=== PATIENT | male | born 1990 | race Caucasian/White ===

== ENCOUNTER 2017-08-26 22:11 | Emergency (ER) | payer OTHER ==
[~2017-08-26] VITALS: Ht 177.8 cm; Wt 63.5 kg
[~2017-08-26 22:11] MED LIST: IBUP-1481 PO; LEVE1000 PO; PHEN100C4 PO; VENL75CA56 PO
--- NOTE | 2017-08-26 22:20 | NUR ---
PT BIBA#60, PT STATES HE WANTS TO KILL HIMSELF BY JUMPING OFF A BUILDING, PT DENIES HI AND STATES HE IS DEPRESSED, NAD NOTED, MD SHAWNA AT BS.
[2017-08-26 22:35] LABS: BASOPHILS % (AUTO) 0.3 % (0.0-2.0); EOSINOPHILS % (AUTO) 0.2 % (0.0-6.0); HEMATOCRIT 43 % (39-51); HEMOGLOBIN 14.4 g/dL (13.5-17.5); LYMPHOCYTES % (AUTO) 24.4 % (20.0-44.0); MEAN CORPUSCULAR HEMOGLOBIN 32 PG (26.0-33.0); MEAN CORPUSCULAR HGB CONC 34 g/dl (31.0-36.0); MEAN CORPUSCULAR VOLUME 94 fL (80-96); MONOCYTES # (AUTO) 0.6 /CMM (0.1-1.30); MONOCYTES % (AUTO) 6.9 % (2.0-12.0); NEUTROPHILS # (AUTO) 5.5 /CMM (1.8-8.9); NEUTROPHILS % (AUTO) 68.2 % (43.0-81.0); PLATELET COUNT (AUTO) 290 /CMM (150-450); RDW COEFFICIENT OF VARIATION 14.1 (11.5-15.0); RED BLOOD CELL COUNT(AUTO) 4.54 MIL/uL (4.5-6.0); WHITE BLOOD COUNT (AUTO) 8.1 K/uL (4.3-11.0)
[2017-08-26 22:46] LABS: CALCIUM, SERUM 8.2 mg/dL (8.5-10.1); CREATININE 0.8 mg/dL (0.6-1.3); POTASSIUM 3.5 mmol/L (3.5-5.1)
[2017-08-26 22:53] LABS: BILIRUBIN,DIRECT 0.1 mg/dL (0.0-0.2); BILIRUBIN,TOTAL 0.5 mg/dL (0.2-1.0); TOTAL PROTEIN, SERUM 7.2 g/dL (6.4-8.2)
[2017-08-26 23:03] LABS: SALICYLATE 0.8 mg/dL (2.8-20.0)
[2017-08-27] MEDS ORDERED: OLANZAPINE 5 MG TABLET ONE (00:35)
[2017-08-27] MEDS ORDERED: OLANZAPINE 5 MG TABLET PO ONE (01:00)
[2017-08-27 04:40] LABS: APPEARANCE,URINE CLEAR (CLEAR); BILIRUBIN,URINE NEGATIVE (NEGATIVE); BLOOD, URINE NEGATIVE Ery/uL (NEGATIVE); COLOR,URINE YELLOW (YELLOW); KETONES,URINE NEGATIVE (NEGATIVE); LEUKOCYTE ESTERASE ,URINE NEGATIVE (NEGATIVE); NITRITE, URINE NEGATIVE (NEGATIVE); PROTEIN,URINE TRACE mg/dl (NEGATIVE); UGLUCOSE NEGATIVE (NEGATIVE); UROBILINOGEN,URINE 0.2 EU/dL (0.2)
[2017-08-27 04:49] LABS: BACTERIA,URINE None seen /HPF (None Seen); RBC,URINE NONE SEEN /HPF (0-2); SQUAMOUS EPITHELIAL CELL,UR Rare /HPF (None Seen); WBC,URINE 0-2 /HPF (0-3)
[2017-08-27 04:50] LABS: MUCUS,URINE Few /LPF (None Seen)
--- NOTE | 2017-08-27 06:26 | NUR ---
PT TRANSFERRED TO ER BED 6 PER MD REQUEST. PT AWARE.
--- NOTE | 2017-08-27 07:31 | NUR ---
REPORT GIVEN TO LUIS COSBY FOR DEJA.
--- NOTE | 2017-08-27 09:04 | NUR ---
Patient is resting comfortably in bed with eyes closed. Easily aroused. VSS
--- NOTE | 2017-08-27 11:00 | NUR ---
Patient is resting comfortably in bed with eyes closed. Easily aroused. VSS
--- NOTE | 2017-08-27 13:20 | NUR ---
Pt ambulatory with a steady gait.
--- NOTE | 2017-08-27 14:50 | NUR ---
Patient discharged to home in stable condition. Written and verbal after care instructions given. Patient verbalizes understanding of instruction.
[2017-08-27 15:31] VITALS: BP 105/71
== END 2017-08-27 15:35 | disposition home or self-care (01) ==
LOC: ER 22:13
DX: R45.851 Suicidal ideations (principal); F32.9 Major depressive disorder, single episode, unspecified; F10.129 Alcohol abuse with intoxication, unspecified
CPT/HCPCS: 36415; 80048; 80076; 80305; 80329; 81001; 85025; 99284; A4606; G0480 ×2; Z7610; 81000-TC

== ENCOUNTER 2017-10-23 16:02 | Emergency (ER) | payer OTHER ==
[~2017-10-23] VITALS: Ht 182.9 cm; Wt 89.4 kg
[2017-10-23 16:19] VITALS: BP 132/61
== END 2017-10-23 17:32 | disposition home or self-care (01) ==
LOC: ER 16:05
DX: L03.311 Cellulitis of abdominal wall (principal); L40.9 Psoriasis, unspecified; F32.9 Major depressive disorder, single episode, unspecified
CPT/HCPCS: 99283; A4606; Z7610

== ENCOUNTER 2018-03-23 08:49 | Emergency (ER) | payer OTHER ==
[~2018-03-23] VITALS: Ht 175.3 cm; Wt 81.6 kg
[~2018-03-23 08:49] MED LIST changes: -IBUP-1481 PO; +IBUP-1953 PO
--- NOTE | 2018-03-23 08:55 | NUR ---
BIBRA 102 FOR ETOH INTOXICATION. PATIENT ALTERED, BREATHING EVEN AND UNLABORED. NO SOB, NAD, VITALS STABLE. SAFETY AND COMFORT MEASURES IN PLACE. AWAITING MD ORDERS.
--- NOTE | 2018-03-23 14:54 | NUR ---
CALLED FOR FOOD TRAY
--- NOTE | 2018-03-23 15:16 | NUR ---
PT AMBULATORY STEADY GAIT
--- NOTE | 2018-03-23 15:18 | NUR ---
Patient discharged to home in stable condition. Written and verbal after care instructions given. Patient verbalizes understanding of instruction.
[2018-03-23 15:25] VITALS: BP 126/72
== END 2018-03-23 15:26 | disposition home or self-care (01) ==
LOC: ER 08:50
DX: F10.129 Alcohol abuse with intoxication, unspecified (principal); F32.9 Major depressive disorder, single episode, unspecified; L40.9 Psoriasis, unspecified; R41.82 Altered mental status, unspecified
CPT/HCPCS: 99283; A4606; Z7610